=== PATIENT | female | born 2000 | race African-American/Black ===

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

== ENCOUNTER 2022-08-07 13:01 | Emergency (ER) | payer OTHER ==
[2022-08-07 13:20] VITALS: BP 126/65; PULSE 102; RESP 18; TEMP 98.4; BMI 45.3
[2022-08-07] MEDS ORDERED: diphenhydrAMINE HCL 50 MG CAPSULE PO ONE (14:02)
[2022-08-07] MEDS ORDERED: diphenhydrAMINE HCL 25 MG CAPSULE (FP) PO ONE (14:07)
== END 2022-08-07 14:18 | disposition home or self-care (01) ==
LOC: JERFT 13:01
DX: L50.0 Allergic urticaria (principal)
CPT/HCPCS: 99283-25